=== PATIENT | male | born 1955 | race Hispanic/Latino ===

== ENCOUNTER → 2022-09-26 | Outpatient (CLI) | payer MEDICARE, OTHER | END | disposition home or self-care (01) | LOC: SHCH 12:57 | PROVIDERS: ATTEND Internal Medicine Cardiovascular Disease | DX: I51.7 Cardiomegaly (principal); R01.1 Cardiac murmur, unspecified; I51.89 Other ill-defined heart diseases | CPT/HCPCS: 93306 ==